=== PATIENT | female | born 1975 ===

== ENCOUNTER 2025-01-20 08:14 | Outpatient (AMB) | payer OTHER, SELFPAY ==
--- NOTE | 2025-01-20 08:20 | A.OFFVIS_ITS ---
VS Expanded 01/20/25 08:29 Height 5 ft 5 in Weight 184 lb 4 oz BMI 30.7 Body Fat % 36.7 Body Fat Mass 67.6 Fat Free Mass 116.6 Visceral Fat Rating 8 Body Water % 45.1 Body Water Mass 83.2 Basal Metabolic Rate/Score 1,592 Intake Visit Reasons: [employer] [facility] BMI 30.7 Allergies lisinopril Adverse Reaction (Mild, Verified 01/20/25 08:20) HEADACHES Medication List - Last Reconciled 01/20/25 by Floyd Medina MD gabapentin 600 mg PO DAILY insulin glargine (Lantus Solostar U-100 Insulin) 20 units subcut BID insulin lispro (Admelog U-100 Insulin lispro) 1 sliding scale dose subcut USEASDIRECTD HPI HPI [employer] [facility] BMI 30.7: Details: Start time: 8.15am, End time: 8.52am ?I spent 32 minutes speaking with the patient on the phone plus an additional 5 minutes reviewing and updating records for a total of 37 minutes HPI Comments Details: Previous weight loss efforts: self diets and exercise Wakes up: 5am, Sleeps: 11pm Breakfast: 9am (2 boiled eggs, or avocado toast, cereal) Lunch: 1pm (yogurt with fruits and granola) Dinner: 6pm (salads, sandwich) Snacks: 11am (cheese), 4pm (sandwich) Exercise: has treadmill (inclines and tracks calories) Beverages: Coffee: 1 cup/d (1% milk, creamer), Tea: none, Soda: Gingerale zero sugar, Juice: occasionally, ETOH: none PFSH Medical History (Updated 01/20/25 @ 08:43 by Floyd Medina MD) Neuropathy Insulin dependent type 1 diabetes mellitus BMI 30.0-30.9,adult Obesity Surgical History (Updated 10/04/24 @ 15:13 by Rebekah Schofield CMA) Hx of colonoscopy Hx of section History of carpal tunnel release of both wrists Family History (Updated 10/04/24 @ 15:19 by Rebekah Schofield CMA) Mother Parkinsons Father No problems noted. Daughter No problems noted. Son Autoimmune disease Deaf Social History (Updated 10/04/24 @ 15:26 by Rebekah Schofield CMA) Alcohol intake: current Alcohol intake frequency: holidays/special occasions only Patient Tobacco Use Status: Never used Tobacco Telehealth Telehealth Telehealth Platform: Telephone Location of provider rendering services: practice address Location of patient: address on file Patient Identification confirmed using: Name, : Yes Telehealth method: voice only Patient verbally consented to treatment: Yes Patient verbally consented to billing insurance company: Yes Patient informed of any privacy concerns related to visit: Yes Minutes spent on Phone/Video with Pt.: 37 Assessment & Plan Assessment & Plan (1) Obesity: Code(s): E66.9 - Obesity, unspecified Category: Medical Qualifiers: Obesity type: due to excess calories Obesity classification: adult class 1 (BMI 30 - 34.9) Serious obesity comorbidity presence: with serious comorbidity Body mass index: BMI 30.0-30.9 Qualified Code(s): E66.811 - Obesity, class 1; E66.09 - Other obesity due to excess calories; Z68.30 - Body mass index [BMI] 30.0-30.9, adult Plan: ?1. As we discussed, based on your present BMI you are approximately 35lbs overweight. In my opinion, for any weight loss strategy to be successful should have a high probability to help you lose at least 30lbs out of 35lbs of the extra weight you carry. ?We discussed in detail the available therapeutic options: ?1) our lifestyle intervention program that has an average weight loss of 10% in 3 months.?Some patients continue it for longer and have lost over 50lbs but this is not common. Our lifestyle program can be provided by me. I will provide you with a link to use the ruthy if you choose to do so. We use protein shakes and protein bars to replace some of the meals of the day and cover your appetite better. We will decide together the exact combination. ?2) Weight loss medications: these can be used in conjunction with our lifestyle program or you may choose to use them without following a lifestyle program from my program but your own. One option is the Phentermine pill which is affordable as self pay option. It is well tolerated and most common side effects include blood pressure elevation, dry mouth, difficulty sleeping and heart palpitations. It's a temporary solution and once you stop it, patients tend to put the weight back. 3) The weight loss injections are contraindicated for you because you have type I diabetes ?4) We also discussed about the lap sleeve gastrectomy. 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 This will address the reflux as well as the frequent runs to the bathrooom you experience. ??I emphasized the importance of close follow-up, adherence to instructions and good communication. The surgery does not replace the need to change your lifestlyle which is the cause of the obesity problem. The surgery provides the motivation to try again to change your lifestyle, it reduces the appetite and make the transition to a better lifestyle easier and doubles the amount of weight you would lose compared to doing the lifestyle change without the surgery. You will need to be on a liquid diet with protein shakes for 2 weeks before surgery to maximize weight loss and boost your nutritional status to recover better from surgery and also for the first two weeks after surgery to let the stomach heal before we introduce other foods. After the first 2 weeks we will introduce protein bars and soft foods like scrambled eggs, cottage cheese and yogurt and after the 6th week will introduce meat, fish and cooked vegetables in small amounts. Over time you should be able to eat everything in small amounts. Side effects like nausea, vomiting, heartburn or abdominal pain are not common in the practice unless you are not following in the practice. This operation requires lifetime commitment to following in our practice and communication with me. You will much less weight and experience side effects if you don?t communicate or not following in the practice. Complications are rare and in our practice is about 1/10 of the national average. 5) Very Important: We do extensive research in this practice. In very recent research we did, we found that patients who did the lifestyle program without medications followed by weight loss surgery, lost twice as much as they would lose if they used the shots for the same period of time and with the two groups being completely matched in terms of demographics and starting weights. Another research study we did found that when we compared patients who did our lifestyle program without or with the weight loss shots, they lost the same weight but they did not lose any muscle mass. The patients who used the shots lost about 3% of their muscle mass in 3 months which translates to 5-15lbs of actual muscle mass depending on each patient's initial weight. That's not good because it makes you frail and weak and reduces your metabolism. In another research study we did, we found that losing 10-20% of your initial weight before the weight loss surgery, followed by surgery at the lowest possible weight, gives you a significant boost in longterm weight loss 6 years or more after surgery, that makes a difference in the long-term success. Preoperative weight loss is not commonly used by many practices especially at this magnitude, but it is our philosophy and makes a huge difference.
[2025-01-20 08:29] VITALS: BMI 30.7
== END 2025-01-20 08:53 | disposition home or self-care (01) ==
LOC: HO.HBS 08:14
PROVIDERS: PCP Physician Assistant Medical; Visit Provider Surgery
DX: E66.811 Obesity, class 1 (principal); E66.09 Other obesity due to excess calories; Z68.30 Body mass index [BMI] 30.0-30.9, adult
CPT/HCPCS: 99203